=== PATIENT | male | born 1950 | race Caucasian/White ===

== ENCOUNTER → 2021-03-23 07:38 | Outpatient (BNVA) | payer MEDICARE, SELFPAY | PROVIDERS: PCP Family Medicine Adult Medicine; Visit Provider Family Medicine Adult Medicine | DX: E78.5 Hyperlipidemia, unspecified (principal); I25.10 Atherosclerotic heart disease of native coronary artery without angina pectoris; Z13.6 Encounter for screening for cardiovascular disorders; Z95.5 Presence of coronary angioplasty implant and graft | CPT/HCPCS: 80053; 80061; 83036; 84443; 85025; G0103 ==

== ENCOUNTER 2021-06-05 13:57 | Outpatient (CLI) | payer MEDICARE, SELFPAY ==
--- NOTE | 2021-06-05 14:15 | USCV_ITS ---
Myles Medina Age: 71 Gender: M : 1950 Exam Date: 06/05/2021 14:15 Ordering Phys: Vy Camara MD ([email or web address]) Technologist: Ritesh Colon Exam Location: [facility] Indication: Hypertension BP: 119 / 78 HR: 52 Rhythm: Sinus Technical Quality: Adequate MEASUREMENTS (Male / Female) Normal Values 2D ECHO LV Diastolic Diameter PLAX 4.7 cm 4.2 - 5.9 / 3.9 - 5.3 cm LV Systolic Diameter PLAX 3.3 cm LV Chamber Size 4.9 cm IVS Diastolic Thickness 0.8 cm 0.6 - 1.0 / 0.6 - 0.9 cm IVS Systolic Thickness 1.2 cm LVPW Diastolic Thickness 1.3 cm 0.6 - 1.0 / 0.6 - 0.9 cm LVPW Systolic Thickness 1.5 cm RV Chamber Size 2.7 cm LVOT Diameter 2.0 cm LV Ejection Fraction 2D Teich 56.7 % LV Ejection Fraction MOD 2C 53.8 % LV Ejection Fraction 2C AL 53.7 % LA Diameter 2.9 cm LA Width 3.6 cm LA Height 4.1 cm RA Width 3.0 cm RA Height 5.4 cm Aorta at Sinotubular Diameter 3.1 cm M-MODE Aortic Annulus Diameter 2.9 cm LA Ao Ratio MM 1.0 MV E Point Septal Separation 0.9 cm DOPPLER AV Peak Velocity 122.0 cm/s LVOT Peak Velocity 98.0 cm/s AV Area Cont Eq vti 1.9 cm squared AV Area Cont Eq pk 2.4 cm squared MV Area PHT 2.2 cm squared Mitral E to A Ratio 3.2 MV E' Velocity 108.4 cm/s Mitral E to MV E' Ratio 14.1 Mitral E to LV E' Lateral Ratio 13.3 Mitral E to LV E' Septal Ratio 15.3 TR Peak Velocity 92.4 cm/s TR Peak Gradient 3.4 mmHg TR Mean Velocity 62.7 cm/s TR Mean Gradient 1.9 mmHg TR Velocity Time Integral 22.9 cm TV Peak E Velocity 67.0 cm/s Right Atrial Pressure 3.0 mmHg Pulmonary Artery Systolic Pressu 6.4 mmHg PV Peak Velocity 46.0 cm/s RV Acceleration Time 0.1 s RV Ejection Time 0.3 s RV AcT/ET 0.2 FINDINGS Left Ventricle Normal left ventricular size, systolic function and wall thickness, with no regional wall motion abnormalities. Left ventricular ejection fraction is estimated at 60 %. Normal diastolic function. Right Ventricle Normal right ventricular size and systolic function. RVSP could not be calculated due to incomplete tricuspid regurgitation velocity profile. Right Atrium Normal right atrial size. Left Atrium Normal left atrial size. Mitral Valve Structurally normal mitral valve. No mitral valve stenosis. No significant mitral valve regurgitation. Aortic Valve Structurally normal trileaflet aortic valve. No aortic valve stenosis. Trace to mild aortic valve regurgitation. Tricuspid Valve Structurally normal tricuspid valve. No tricuspid valve stenosis. Trace to mild tricuspid valve regurgitation. Pulmonic Valve Pulmonic valve not well visualized. No pulmonary valve stenosis. No significant pulmonary valve regurgitation. Pericardium No pericardial effusion. Aorta Normal size aortic root. CONCLUSIONS 1. This is a technically difficult study. Optison was used per protocol. 2. Normal left ventricular size, systolic function and wall thickness, with no regional wall motion abnormalities. Left ventricular ejection fraction is estimated at 60 %. Normal diastolic function. 3. Trace to mild aortic valve regurgitation. 4. No prior similar studies to compare. Vy Camara MD (Electronically Signed) Final Date: 10 June 2021 08:04 S
[2021-06-05] MEDS: perflutren protein-a microsphr 0.22 mg/mL SDV 3 mL IV (15:06)
== END 2021-06-05 13:58 | disposition home or self-care (01) ==
PROVIDERS: PCP Family Medicine Adult Medicine; Visit Provider Internal Medicine Cardiovascular Disease
DX: I10 Essential (primary) hypertension (principal); I25.10 Atherosclerotic heart disease of native coronary artery without angina pectoris; Z95.5 Presence of coronary angioplasty implant and graft; I35.1 Nonrheumatic aortic (valve) insufficiency
CPT/HCPCS: C8929

== ENCOUNTER → 2021-07-02 14:29 | Outpatient (BNVA) | payer MEDICARE, SELFPAY | PROVIDERS: PCP Family Medicine Adult Medicine; Visit Provider Internal Medicine Cardiovascular Disease | DX: I25.10 Atherosclerotic heart disease of native coronary artery without angina pectoris (principal); I10 Essential (primary) hypertension; Z95.5 Presence of coronary angioplasty implant and graft | CPT/HCPCS: 99214 ==

== ENCOUNTER 2021-09-04 13:28 | Outpatient (CLI) | payer MEDICARE, SELFPAY ==
--- NOTE | 2021-09-04 13:38 | CTR_ITS ---
PROCEDURE INFORMATION: Exam: CT Chest Without Contrast; Diagnostic Exam date and time: 09/04/2021 1:49 PM Age: 71 years old Clinical indication: Condition or disease; Lung condition and disease; Pulmonary nodule, solitary; Prior surgery; Surgery type: Cardiac stents; Patient HX: Copd eval, cough, SOB; Additional info: Follow up/hx of lung nodule since 2006 TECHNIQUE: Imaging protocol: Diagnostic computed tomography of the chest without contrast. Radiation optimization: All CT scans at this facility use at least one of these dose optimization techniques: automated exposure control; mA and/or kV adjustment per patient size (includes targeted exams where dose is matched to clinical indication); or iterative reconstruction. COMPARISON: No relevant prior studies available. RADIATION DOSE METRICS: Total DLP (mGy-cm): 622.91 FINDINGS: Lungs: Moderate centrilobular emphysematous changes. Minor curvilinear scarring at the lung bases. No nodules or masses. Pleural spaces: No pneumothorax. No pleural effusion. Heart: Coronary artery calcifications noted. No cardiomegaly. No pericardial effusion. Lymph nodes: No enlarged lymph nodes. Vasculature: No aortic aneurysm. Bones/joints: No acute fracture. Soft tissues: Unremarkable. CT/CT chest con [id number] IMPRESSION: Moderate emphysema. No nodules or masses.
== END 2021-09-04 13:29 | disposition home or self-care (01) ==
LOC: RAD 13:30
PROVIDERS: PCP Family Medicine Adult Medicine; Visit Provider Family Medicine Adult Medicine
DX: J43.9 Emphysema, unspecified (principal); R91.8 Other nonspecific abnormal finding of lung field
CPT/HCPCS: 71250

== ENCOUNTER 2022-07-30 10:42 | Outpatient (CLI) | payer MEDICARE, SELFPAY ==
--- NOTE | 2022-07-30 12:15 | CT_ITS ---
WS: [id number] LDCT LUNG CANCER SCREENING TECHNIQUE: Noncontrast CT of the chest with coronal and sagittal reformatted images. CLINICAL INFORMATION: smoker COMPARISON: September 04, 2021 DLP: 65.70 mGy.cm DIvol: Mean CTDIvol: 1.00 (mGy) All CT scans at [facility] use at least one of these dose optimization techniques: automat ed exposure control; mA and/or kV adjustment per patient size (includes targeted exams where dose is matched to clinical indication); or iterative reconstruction. FINDINGS: Moderate chronic emphysematous changes. No acute pulmonary infiltrates. No focal pneumonia or pleural fluid. No suspicious pulmonary parenchymal opacities. Normal caliber thoracic aorta. Mild aortic calcification. Coronary calcification. No mediastinal or h ilar lymphadenopathy. No axillary lymphadenopathy. Adrenal glands are normal. CT/CT lung screening [id number] IMPRESSION: LUNG-RADS: 1-Negative FOLLOW UP: 12 Month: Continue annual screening with LDCT
== END 2022-07-30 10:43 | disposition home or self-care (01) ==
LOC: RAD 10:45
PROVIDERS: PCP Family Medicine Adult Medicine; Visit Provider Family Medicine Adult Medicine
DX: Z12.2 Encounter for screening for malignant neoplasm of respiratory organs (principal); J44.9 Chronic obstructive pulmonary disease, unspecified; F17.200 Nicotine dependence, unspecified, uncomplicated; N53.19 Other ejaculatory dysfunction; N40.0 Benign prostatic hyperplasia without lower urinary tract symptoms; I25.10 Atherosclerotic heart disease of native coronary artery without angina pectoris; E78.5 Hyperlipidemia, unspecified; I10 Essential (primary) hypertension
CPT/HCPCS: 71271; 80053; 80061; 85025; G0103

== ENCOUNTER 2023-03-06 03:03 | Emergency (ER) | payer MEDICARE, MEDICAID, SELFPAY ==
[2023-03-06 03:10] VITALS: BP 125/76; PULSE 64; RESP 17; TEMP 36.6; O2SAT 94
--- NOTE | 2023-03-06 03:16 | ECG_ITS ---
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 Measurements Intervals [place] Rate: 64 P: 80 OK: 188 QRS: 71 QRSD: 93 T: 78 QT: 387 QTc: 402 Interpretive Statements SINUS RHYTHM INDETERMINATE AXIS INCOMPLETE RIGHT BUNDLE BRANCH BLOCK [90+ ms QRS DURATION, TERMINAL R IN V1/V2, 40+ ms S IN I/aVL/V4/V5/V6] SEPTAL MYOCARDIAL INFARCTION , OF INDETERMINATE AGE [40+ ms Q WAVE IN V1/V2] No previous ECG available for comparison Electronically Signed On 03-06-2023 22:05:04 INSURANCE INVESTIGATOR by Nick Joyce M.D. [id number]
--- NOTE | 2023-03-06 03:16 | XRR_ITS ---
PROCEDURE INFORMATION: Exam: XR Chest Exam date and time: 03/06/2023 3:38 AM Age: 72 years old Clinical indication: Chest pressure; Prior surgery; Surgery date: 6+ months; Surgery type: Coronary stents; Patient HX: C/O chest pain; Additional info: Cp TECHNIQUE: Imaging protocol: Radiologic exam of the chest. Views: 1 view. COMPARISON: CT lung screening [id number] 07/30/2022 10:59 AM FINDINGS: Lungs: No consolidation. Emphysema. Pleural spaces: No large pleural effusion. No pneumothorax. Heart/Mediastinum: Unremarkable cardiomediastinal silhouette. Coronary artery stents. Bones/joints: No acute abnormality. XR/XR chest 1V portable [id number] IMPRESSION: 1. No acute findings. 2. Emphysema.
[2023-03-06 03:22] LABS: Basophils # 0.1 10^3/uL (0.0-0.1); Basophils % 0.7 %; Eosinophils # 0.2 10^3/uL (0.0-0.8); Hematocrit 47.9 % (37-53); Lymphocytes # 2.4 10^3/uL (0.8-4.8); Lymphocytes % 25.2 %; Mean Corpuscular HGB Conc 33.2 g/dL (30-55); Mean Corpuscular Hemoglobin 33.1 pg (27-33); Mean Corpuscular Volume 99.8 fl (82-101); Mean Platelet Volume 9.4 fL (7.4-10.4); Monocytes # 0.7 10^3/uL (0.2-0.9); Monocytes % 7.8 %; Neutrophils # 6.01 10^3/uL (1.8-7.7); Neutrophils % 63.9 %; Nucleated Red Blood Cells % 0 %; Platelet Count 308 10^3/cmm (157-399); Red Cell Distribution Width 13.5 % (12.1-15.1); White Blood Count 9.41 10^3/uL (3.29-11.43)
[2023-03-06 03:33] LABS: INR 0.95 (0.8-1.2)
[2023-03-06 03:34] LABS: Partial Thromboplastin Time 30.9 SECONDS (23.9-36.7)
[2023-03-06 03:43] LABS: Troponin(5th) Baseline 9 ng/L (0-15)
[2023-03-06 03:45] VITALS: BP 91/49; PULSE 56; RESP 16; O2SAT 96
[2023-03-06 03:59] LABS: Alanine Aminotransferase 24 U/L (0-41); Albumin Level 4.2 g/dL (3.5-5.2); Alkaline Phosphatase 87 U/L (40-130); Anion Gap 11.7 (5-19); Aspartate Amino Transferase 22 U/L (0-40); Blood Urea Nitrogen 15 mg/dL (8-23); Calcium 9.2 mg/dL (8.5-10.5); Carbon Dioxide 26 mmol/L (22-29); Chloride 103 mmol/L (98-107); Glucose 159 mg/dL (65-115); NT Pro B Type Natriuretic Pept 81 pg/mL (0-125); Osmolality Calculated 286 mOsm/kg (285-295); Potassium 4.7 mmol/L (3.5-5.1); Sodium 136 mmol/L (136-145); Total Bilirubin 0.4 mg/dL (0.15-1.2); Total Protein 6.2 g/dL (6.6-8.7)
[2023-03-06 05:01] VITALS: BP 95/58; PULSE 59; RESP 16; O2SAT 97
--- NOTE | 2023-03-06 05:16 | ECG_ITS ---
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 Measurements Intervals [place] Rate: 55 P: 77 UT: 183 QRS: 66 QRSD: 98 T: 71 QT: 415 QTc: 400 Interpretive Statements SINUS BRADYCARDIA INDETERMINATE AXIS SEPTAL MYOCARDIAL INFARCTION , OF INDETERMINATE AGE [40+ ms Q WAVE IN V1/V2] Compared to ECG 03/06/2023 03:06:12 Sinus rhythm no longer present Incomplete right bundle-branch block no longer present Myocardial infarct finding still present Electronically Signed On 03-06-2023 22:19:26 FIBERGLASS BOAT FINISHER by Nick Joyce M.D. [id number]
[2023-03-06 05:37] LABS: Troponin 5 2HR 8.19 ng/L (0-15); Troponin 5 2HR Delta -0.81 ABS# (0-10)
--- NOTE | 2023-03-06 05:58 | ED_ITS ---
HPI - Chest Pain General: Chief Complaint: Chest Pain Stated Complaint: Cp,sweats Time Seen by Provider: 03/06/23 03:53 History of Present Illness: 72-year-old smoker with a history of coronary disease. He presents after waking in his chair this morning with epigastric and chest pain, profuse diaphoresis. Mild shortness of breath. He has a chronic cough that has not changed. No fever. Pain is resolved on my examination. Associated symptoms: Reports abdominal pain (epigastric), dyspnea and palpitations; Deny fever(s), nausea or vomiting Review of Systems Const: Reports: chills; Denies: fever(s) or body aches Eyes: Denies: change in vision ENMT: Denies: throat pain Card: Reports: chest pain and palpitations Resp: Reports: dyspnea and non-productive cough (chronic); Denies: productive cough or wheezing GI: Reports: abdominal pain (epigastric) and heartburn; Denies: nausea, vomiting, diarrhea or hematochezia Musc: Denies: neck pain Skin/Breast: Denies: rash Neuro: Denies: headache(s), weakness in extremities, dizziness or confusion PFSH ED PFSH: Medical History Bilateral leg cramps BPH (benign prostatic hyperplasia) CAD (coronary artery disease) ID x2, Stents 2006, Stents 04/2014 x3 total of 5 COPD (chronic obstructive pulmonary disease) HTN (hypertension) Hx of rheumatic fever As baby but was told no heart valve issues from it Hyperlipidemia Multiple lung nodules CT Scan 08/20/2020 Rt apex 5 mm irregular opacity, repeat non-contact CT after 6 months PAD (peripheral artery disease) PUD (peptic ulcer disease) Ulcer at age 19 Smoker 1 ppd since age 14 Surgical History History of heart artery stent Stents 2006, Stents 04/2014 x3 Hx of tonsillectomy At age 22 Family History Brother , Brother with Lung CA age 68 No problems noted. Other CAD (coronary artery disease) CHF (congestive heart failure) HOCM (hypertrophic obstructive cardiomyopathy) Stroke Social History Smoking and tobacco/nicotine status: current every day tobacco/nicotine user Alcohol intake: current Alcohol intake frequency: 0-2 Drinks per Day Substance/Drug Use: never Lives independently: Yes Household members: significant other Current occupational status: retired Physical Exam Const: COMMON NORMALS: no acute distress GENERAL APPEARANCE: cooperative; not ill appearing and not frail appearing HENMT: COMMON NORMALS: normocephalic, atraumatic and Normal external nose present HEAD & SCALP: normocephalic and atraumatic FACE & SINUS: normal facial exam and face symmetric NOSE: Normal external nose present Eye: COMMON NORMALS: Equal, round and reactive pupils present and EOMs intact bilaterally PUPIL: Yes Equal, round and reactive pupils present Neck/C-Spine: GENERAL: Yes trachea midline Chest: CHEST: Yes Symmetrical chest wall rise Resp: COMMON NORMALS: normal respiratory effort, No retractions, No use of accessory muscles and clear to auscultation bilaterally AUSCULTATION: clear to auscultation bilaterally Cardio: COMMON NORMALS: regular rate and regular rhythm RATE: regular rate RHYTHM: regular rhythm GI: COMMON NORMALS: Normal to inspection, nondistended, normoactive bowel sounds present Extremity: COMMON NORMALS: no pedal edema Neuro: RICHARD COMA SCALE: document GCS findings [address] coma scale eye opening: Spontaneous Richard coma scale verbal response: Orientated Richard coma scale motor response: Obey commands Richard coma scale total score: 15 SENSORY EXAM: Yes extremities (intact) Psych: COMMON NORMALS: speech normal SPEECH: Yes normal speech Skin: COMMON NORMALS: no rashes or lesions noted GENERAL SKIN EXAM: no rashes or lesions noted Course Vital Signs: Vital signs: Vital Signs Temperature 97.9 F 03/06/23 06:18 Pulse Rate 59 L 03/06/23 06:18 Respiratory Rate 16 03/06/23 06:18 Blood Pressure 95/58 03/06/23 06:18 Pulse Oximetry 97 03/06/23 06:18 Oxygen Delivery Me thod Room Air 03/06/23 03:10 MDM - Chest Pain Medical Decision Making Vitals are stable. Pain is resolved. CBC is normal. BMP is not remarkable. Chest x-ray shows emphysematous findings without acute change. First troponin was 9, with a delta of 0.8. BNP is 81. EKG shows a NSR, normal axis and intervals, no acute ST wave changes. With resolution of symptoms and no change in EKG, normal troponins, will allow home. Return for return of pain or other symptoms. Close outpt fu. Lab Data 03/06/23 03:10 03/06/23 03:10 Radiology Impressions Chest X-Ray 03/06/23 03:16 IMPRESSION: 1. No acute findings. 2. Emphysema. Laboratory Results WBC 9.41 10^3/uL (3.29-11.43) 03/06/23 03:10 RBC 4.80 10^6/uL (3.85-5.65) 03/06/23 03:10 Hgb 15.90 g/dL (11.27-16.99) 03/06/23 03:10 Hct 47.9 % (37-53) 03/06/23 03:10 MCV 99.8 fl (82-101) 03/06/23 03:10 MCH 33.1 pg (27-33) H 03/06/23 03:10 MCHC 33.2 g/dL (30-55) 03/06/23 03:10 RDW 13.5 % (12.1-15.1) 03/06/23 03:10 Plt Count 308 10^3/cmm (157-399) 03/06/23 03:10 MPV 9.4 fL (7.4-10.4) 03/06/23 03:10 Neut % (Auto) 63.9 % 03/06/23 03:10 Lymph % (Auto) 25.2 % 03/06/23 03:10 [place] % (Auto) 7.8 % 03/06/23 03:10 Eos % (Auto) 2.0 % 03/06/23 03:10 Baso % (Auto) 0.7 % 03/06/23 03:10 Neut # (Auto) 6.01 10^3/uL (1.8-7.7) 03/06/23 03:10 Lymph # (Auto) 2.4 10^3/uL (0.8-4.8) 03/06/23 03:10 [place] # (Auto) 0.7 10^3/uL (0.2-0.9) 03/06/23 03:10 Eos # (Auto) 0.2 10^3/uL (0.0-0.8) 03/06/23 03:10 Baso # (Auto) 0.1 10^3/uL (0.0-0.1) 03/06/23 03:10 Nucleated RBC % (auto) 0 % 03/06/23 03:10 Nucleated RBCs # 0.0 /100WBC 03/06/23 03:10 PT 13.00 SECONDS (12.1-14.9) 03/06/23 03:10 INR 0.95 (0.8-1.2) 03/06/23 03:10 APTT 30.9 SECONDS (23.9-36.7) 03/06/23 03:10 Sodium 136 mmol/L (136-145) 03/06/23 03:10 Potassium 4.7 mmol/L (3.5-5.1) 03/06/23 03:10 Chloride 103 mmol/L (98-107) 03/06/23 03:10 Carbon Dioxide 26 mmol/L (22-29) 03/06/23 03:10 Anion Gap 11.7 (5-19) 03/06/23 03:10 BUN 15 mg/dL (8-23) 03/06/23 03:10 Creatinine 1.0 mg/dL (0.7-1.2) 03/06/23 03:10 GFR Calculation Not Reportable 03/06/23 03:10 Glucose 159 mg/dL (65-115) H 03/06/23 03:10 Calculated Osmolality 286 mOsm/kg (285-295) 03/06/23 03:10 Calcium 9.2 mg/dL (8.5-10.5) 03/06/23 03:10 Total Bilirubin 0.4 mg/dL (0.15-1.2) 03/06/23 03:10 AST 22 U/L (0-40) 03/06/23 03:10 ALT 24 U/L (0-41) 03/06/23 03:10 Alkaline Phosphatase 87 U/L (40-130) 03/06/23 03:10 Troponin T Baseline 9 ng/L (0-15) 03/06/23 03:10 Troponin T 120 Minute 8.19 ng/L (0-15) 03/06/23 04:57 Delta Troponin T -0.81 ABS# (0-10) L 03/06/23 04:57 NT-Pro-B Natriuret Pep 81 pg/mL (0-125) 03/06/23 03:10 Total Protein 6.2 g/dL (6.6-8.7) L 03/06/23 03:10 Albumin 4.2 g/dL (3.5-5.2) 03/06/23 03:10 Globulin 2.0 g/dL (1.3-4.6) 03/06/23 03:10 All radiology interpretation(s) finalized by discharge Discharge Plan Discharge Patient Disposition: Home Clinical Impression: Chest pain Condition: Stable Prescriptions: No Action magnesium 250 mg tablet 250 mg PO DAILY atorvastatin 80 mg tablet 80 mg PO DAILY Qty: 90 3RF ropinirole 0.5 mg tablet 0.5 mg PO BID Qty: 60 5RF sildenafil 100 mg tablet See Rx Instructions .ROUTE .COMPLEX Qty: 14 3RF Dose Instruction: TAKE 1 TABLET BY MOUTH NEEDED 30 MINUTES TO 4 HOURS BEFORE SEXUAL ACTIVITY Rx Instructions: TAKE 1 TABLET BY MOUTH NEEDED 30 MINUTES TO 4 HOURS BEFORE SEXUAL ACTIVITY metoprolol tartrate 25 mg tablet 25 mg PO BID Qty: 180 1RF nitroglycerin 0.4 mg tablet, sublingual 0.4 mg sublingual Q5M PRN (Reason: angina) Qty: 10 3RF Rx Instructions: do not exceed 3 doses per episode guaifenesin 600 mg tablet extended release 12hr 600 mg PO Q12H PRN (Reason: congestion) Qty: 60 5RF albuterol sulfate 90 mcg/actuation HFA aerosol inhaler 2 puff inhalation Q6H PRN (Reason: shortness of breath or wheezing) Qty: 8.5 5RF tiotropium bromide [Spiriva with HandiHaler] 18 mcg capsule, w/inhalation device 1 cap inhalation DAILY Qty: 30 3RF Rx Instructions: puncture 1 cap using device; one dose = 2 inhalations clopidogrel 75 mg tablet 75 mg PO DAILY Qty: 100 1RF furosemide 20 mg tablet 20 mg PO DAILY PRN (Reason: edema) Qty: 100 1RF lisinopril 5 mg tablet 5 mg PO DAILY Qty: 100 1RF Discharge Orders: Discharge ED (Routine); Ordered 03/06/23 Ordered By: Terence Pabon Referrals: Oneil Montalvo MD [Primary Care Provider] - 1-3 days Discharge Diet: Advance as tolerated Patient Instructions: Chest Wall Pain (ED), Opioid Safety, Pain Management Activity Restrictions/Additional Instructions: Return for any return of your chest discomfort, worsening shortness of breath, fever, other concerning symptoms. Call your doctor on Tuesday. Let them know you were seen here with chest discomfort. They may wish to perform more outpatient testing. Coding Level of Care Code ED Instrument Technician Apprentice for 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
[2023-03-06 06:18] VITALS: BP 95/58; PULSE 59; RESP 16; TEMP 36.6; O2SAT 97
== END 2023-03-06 06:19 | disposition home or self-care (01) ==
PROVIDERS: Emergency Provider Emergency Medicine; PCP Family Medicine Adult Medicine
DX: R07.9 Chest pain, unspecified (principal); J43.9 Emphysema, unspecified; Z79.02 Long term (current) use of antithrombotics/antiplatelets; Z72.0 Tobacco use; I25.10 Atherosclerotic heart disease of native coronary artery without angina pectoris; I10 Essential (primary) hypertension; E78.5 Hyperlipidemia, unspecified
CPT/HCPCS: 71045; 80053; 83880; 84484; 85025; 85610; 85730; 93005; 99285

== ENCOUNTER 2024-03-02 09:36 | Outpatient (CLI) | payer MEDICARE, MEDICAID, SELFPAY ==
--- NOTE | 2024-03-02 09:45 | USCV_ITS ---
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 Normal resting KRYS and TBI on the right side suggesting no significant arterial obstruction. 2. Normal resting KRYS with a slightly diminished resting TBI of the left side suggesting mild peripheral artery disease involving the distal vessels Dr Nick Joyce MD [facility] (Electronically Signed) Final Date: 02 March 2024 15:23 S
== END 2024-03-02 09:37 | disposition home or self-care (01) ==
LOC: RAD 09:36
PROVIDERS: PCP Family Medicine Adult Medicine; Visit Provider Family Medicine
DX: I73.9 Peripheral vascular disease, unspecified (principal)
CPT/HCPCS: 93922

== ENCOUNTER → 2024-07-31 08:36 | Outpatient (BNVA) | payer MEDICARE, SELFPAY | PROVIDERS: PCP Family Medicine; Visit Provider Family Medicine | DX: I10 Essential (primary) hypertension (principal); Z12.5 Encounter for screening for malignant neoplasm of prostate | CPT/HCPCS: 80053; 80061; 81000; 82043; 85025; G0103 ==

== ENCOUNTER → 2024-08-03 09:47 | Outpatient (BNVA) | payer MEDICARE, SELFPAY | PROVIDERS: PCP Family Medicine; Visit Provider Family Medicine | DX: R31.29 Other microscopic hematuria (principal) | CPT/HCPCS: 81003 ==

== ENCOUNTER 2024-08-06 22:51 | Emergency (ER) | payer MEDICARE, SELFPAY ==
[2024-08-06 22:55] VITALS: BP 172/98; PULSE 74; RESP 18; TEMP 36.8; O2SAT 91
--- NOTE | 2024-08-06 23:02 | CTR_ITS ---
PROCEDURE INFORMATION: Exam: CT Abdomen And Pelvis With Contrast Exam date and time: 08/06/2024 11:42 PM Age: 74 years old Clinical indication: Abdominal pain; Localized; Lower; Additional info: Abd pain TECHNIQUE: Imaging protocol: Computed tomography of the abdomen and pelvis with contrast. Radiation optimization: All CT scans at this facility use at least one of these dose optimization techniques: automated exposure control; mA and/or kV adjustment per patient size (includes targeted exams where dose is matched to clinical indication); or iterative reconstruction. Contrast material: OMNI 350; Contrast volume: 100 ml; Contrast route: INTRAVENOUS (IV); COMPARISON: CT lung screening [id number] 07/30/2022 10:59 AM RADIATION DOSE METRICS: Total DLP (mGy-cm): 437.62 FINDINGS: Lungs: Mild lower lung scarring/atelectasis. Liver: Normal. No mass. Gallbladder and biliary ducts: Normal. No calcified stones. No ductal dilation. Pancreas: Normal. No ductal dilation. Spleen: Normal. No splenomegaly. Adrenal glands: Normal. No mass. Kidneys and ureters: Multiple bilateral renal subcentimeter cortical hypodensities, likely cysts but too small to characterize. Renal enhancement otherwise symmetrical. No hydronephrosis or urolithiasis. Stomach and bowel: Mild wall thickening versus nondistention of the descending colon, sigmoid colon, and rectum. Small and large bowel otherwise unremarkable. Nonobstructive bowel gas pattern. Appendix: No evidence of appendicitis. Intraperitoneal space: Unremarkable. No free air. No significant fluid collection. Vasculature: Severe atherosclerotic calcification of the aorta and major branch vessels without aneurysm. Lymph nodes: Unremarkable. No enlarged lymph nodes. Urinary bladder: Unremarkable as visualized. Reproductive: Mild prostatomegaly measuring 5.5 cm transversely. Bones/joints: Moderate thoracolumbar spondylosis. No acute osseous abnormality. Soft tissues: Unremarkable. CT/CT abdomen pelvis w con* [id number] IMPRESSION: 1. Mild wall thickening versus nondistention of the descending colon, sigmoid colon, and rectum. Possible mild infectious/inflammatory proctocolitis. Nonobstructive bowel gas pattern. 2. Mild prostatomegaly. COMMENTS: Consistent with the [place] [employer]'s Incidental Findings Committee white paper (J Am Raimundo Radiol 2018): Any incidental renal lesion less than 1 cm or classified as too small to characterize, or any incidental cystic renal lesion characterized as simple-appearing, is likely benign. No follow-up imaging is recommended for these lesions per consensus recommendations based on imaging criteria.
--- NOTE | 2024-08-06 23:16 | W.ED.GIBLEED ---
HPI - GI Bleed General: Chief complaint: GI Bleed Stated complaint: Rectal Bleeding Time Seen by Provider: 08/06/24 23:01 Source: patient Mode of arrival: ambulatory Limitations: no limitations History of Present Illness: 74-year-old male states been having abdominal cramping this evening has been having diarrhea states his last episode of diarrhea had some bright red blood in his stool. He denies any severe pain denies any lightheadedness denies any worse or improving factors. Associated symptoms: Reports abdominal pain; Denies chills, fever(s), headache(s), nausea, rash or vomiting Related Data Home Medications ?Medication ?Instructions ?Recorded ?Confirmed turmeric root extract 500 mg 500 mg PO DAILY 07/30/24 07/30/24 capsule Previous Rx's ?Medication ?Instructions ?Recorded albuterol sulfate 90 mcg/actuation 2 puff inhalation Q6H PRN 02/03/23 aerosol inhaler shortness of breath or wheezing #8.5 grams atorvastatin 80 mg tablet 80 mg PO DAILY cholesterol #90 tabs 09/14/23 clopidogrel 75 mg tablet 75 mg PO DAILY #90 tabs 07/30/24 fluticasone fur. 100 mcg-umeclid 1 inh inhalation DAILY #60 ea 07/30/24 62.5 mcg-vilant 25 mcg inhalat.powder (Trelegy Ellipta) lisinopril 5 mg tablet 5 mg PO DAILY #90 tabs 07/30/24 metoprolol tartrate 25 mg tablet 25 mg PO BID heart & blood 07/30/24 pressure #180 tabs omeprazole 40 mg capsule,delayed 40 mg PO DAILY #30 caps 07/30/24 release tamsulosin 0.4 mg capsule (Flomax) 0.4 mg PO DAILY #90 caps 08/02/24 ciprofloxacin HCl 500 mg tablet 500 mg PO BID #14 tabs 08/07/24 (Cipro) metronidazole 500 mg tablet 500 mg PO Q8H 7 days #21 tabs 08/07/24 Allergies Allergy/AdvReac Type Severity Reaction Status Date / Time No Known Allergies Allergy Verified 08/06/24 23:00 Review of Systems Const: Denies: fever(s), chills, body aches or change in appetite ENMT: Denies: throat pain or dental pain Card: Denies: chest pain Resp: Denies: dyspnea GI: Reports: abdominal pain, diarrhea and hematochezia; Denies: nausea or vomiting Musc: Denies: neck pain or back pain Skin/Breast: Denies: rash Neuro: Denies: headache(s) PFSH ED PFSH: Medical History Cellulitis of arm, left Bilateral leg cramps BPH (benign prostatic hyperplasia) PUD (peptic ulcer disease) Ulcer at age 19 COPD (chronic obstructive pulmonary disease) PAD (peripheral artery disease) CAD (coronary artery disease) RI x2, Stents 2006, Stents 04/2014 x3 total of 5 Smoker 1 ppd since age [address] lung nodules CT Scan 08/20/2020 Rt apex 5 mm irregular opacity, repeat non-contact CT after 6 months HTN (hypertension) Hyperlipidemia Hx of rheumatic fever As baby but was told no heart valve issues from it Surgical History History of heart artery stent Stents 2006, Stents 04/2014 x3 Hx of tonsillectomy At age 22 Family History Brother , Brother with Lung CA age 68 No problems noted. Other CAD (coronary artery disease) Congestive heart failure (CHF) HOCM (hypertrophic obstructive cardiomyopathy) Stroke Social History Smoking and tobacco/nicotine status: current every day tobacco/nicotine user Alcohol intake: current Alcohol intake frequency: 0-2 Drinks per Day Substance/Drug Use: never Lives independently: Yes Household members: significant other Current occupational status: retired Physical Exam Const: COMMON NORMALS: no acute distress, patient oriented x3 and healthy appearing HENMT: COMMON NORMALS: normocephalic and atraumatic HEAD & SCALP: normocephalic and atraumatic Eye: COMMON NORMALS: conjunctivae normal CONJUNCTIVA: Yes conjunctivae normal Neck/C-Spine: COMMON NORMALS: full ROM and supple Chest: COMMONS NORMALS: normal inspection of the chest Resp: COMMON NORMALS: normal respiratory effort Cardio: COMMON NORMALS: regular rate, regular rhythm and No murmurs present (Cardio) RATE: regular rate RHYTHM: regular rhythm GI: COMMON NORMALS: Normal to inspection, nondistended, normoactive bowel sounds present, Soft to palpation, non-tender and no masses PALPATION: Yes Soft to palpation RECTAL EXAM: Yes visual inspection normal and Yes normal sphincter tone OTHER: stool is brown no blood noted Extremity: COMMON NORMALS: normal to inspection and full ROM Neuro: COMMON NORMALS: patient oriented x3, moves all extremities and no focal motor deficits Psych: COMMON NORMALS: mental status grossly normal, Normal thought process present and cooperative THOUGHT PROCESS: Normal thought process present Skin: COMMON NORMALS: no rashes or lesions noted and no wounds GENERAL SKIN EXAM: no rashes or lesions noted Course Vital Signs: Vital signs: Vital Signs Temperature 98.2 F 08/06/24 22:55 Pulse Rate 89 08/07/24 00:30 Respiratory Rate 18 08/06/24 22:55 Blood Pressure 136/86 08/07/24 00:30 Pulse Oximetry 93 08/07/24 00:30 Oxygen Delivery Me thod Room Air 08/06/24 23:35 MDM - GI Bleed Medical Decision Making Patient presents here with some abdominal cramping diarrhea slight blood in the stools his blood work here is normal hemoglobin is normal rectal exam showed no blood here he does have a colitis on CT scan will be started on Cipro Flagyl he is follow-up with PCP and return if worsening. Medical Records I reviewed the patient's medical records. Lab Data I reviewed the patient's lab results. 08/06/24 23:15 08/06/24 23:15 Radiology Impressions Abdomen/Pelvis CT 08/06/24 23:02 IMPRESSION: 1. Mild wall thickening versus nondistention of the descending colon, sigmoid colon, and rectum. Possible mild infectious/inflammatory proctocolitis. Nonobstructive bowel gas pattern. 2. Mild prostatomegaly. COMMENTS: Consistent with the [place] [employer]'s Incidental Findings Committee white paper (J Am Raimundo Radiol 2018): Any incidental renal lesion less than 1 cm or classified as too small to characterize, or any incidental cystic renal lesion characterized as simple-appearing, is likely benign. No follow-up imaging is recommended for these lesions per consensus recommendations based on imaging criteria. Laboratory Results WBC 10.69 10^3/uL (3.29-11.43) 08/06/24 23:15 RBC 4.69 10^6/uL (3.85-5.65) 08/06/24 23:15 Hgb 15.40 g/dL (11.27-16.99) 08/06/24 23:15 Hct 45.7 % (37-53) 08/06/24 23:15 MCV 97.4 fl (82-101) 08/06/24 23:15 MCH 32.8 pg (27-33) 08/06/24 23:15 MCHC 33.7 g/dL (30-55) 08/06/24 23:15 RDW 13.8 % (12.1-15.1) 08/06/24 23:15 Plt Count 267 10^3/cmm (157-399) 08/06/24 23:15 MPV 9.8 fL (7.4-10.4) 08/06/24 23:15 Neut % (Auto) 72.6 % 08/06/24 23:15 Lymph % (Auto) 16.7 % 08/06/24 23:15 [place] % (Auto) 9.0 % 08/06/24 23:15 Eos % (Auto) 0.7 % 08/06/24 23:15 Baso % (Auto) 0.6 % 08/06/24 23:15 Neut # (Auto) 7.77 10^3/uL (1.8-7.7) H 08/06/24 23:15 Lymph # (Auto) 1.8 10^3/uL (0.8-4.8) 08/06/24 23:15 [place] # (Auto) 1.0 10^3/uL (0.2-0.9) H 08/06/24 23:15 Eos # (Auto) 0.1 10^3/uL (0.0-0.8) 08/06/24 23:15 Baso # (Auto) 0.1 10^3/uL (0.0-0.1) 08/06/24 23:15 Nucleated RBC % (auto) 0 % 08/06/24 23:15 Nucleated RBCs # 0.0 /100WBC 08/06/24 23:15 Sodium 140 mmol/L (136-145) 08/06/24 23:15 Potassium 3.7 mmol/L (3.5-5.1) 08/06/24 23:15 Chloride 105 mmol/L (98-107) 08/06/24 23:15 Carbon Dioxide 22 mmol/L (22-29) 08/06/24 23:15 Anion Gap 16.7 (5-19) 08/06/24 23:15 BUN 17 mg/dL (8-23) 08/06/24 23:15 Creatinine 0.7 mg/dL (0.7-1.2) 08/06/24 23:15 GFR Calculation Not Reportable 08/06/24 23:15 Glucose 97 mg/dL (65-115) 08/06/24 23:15 Calculated Osmolality 291 mOsm/kg (285-295) 08/06/24 23:15 Calcium 8.7 mg/dL (8.5-10.5) 08/06/24 23:15 Total Bilirubin 0.4 mg/dL (0.15-1.2) 08/06/24 23:15 AST 31 U/L (0-40) 08/06/24 23:15 ALT 32 U/L (0-41) 08/06/24 23:15 Alkaline Phosphatase 87 U/L (40-130) 08/06/24 23:15 Total Protein 6.8 g/dL (6.6-8.7) 08/06/24 23:15 Albumin 4.1 g/dL (3.5-5.2) 08/06/24 23:15 Globulin 2.7 g/dL (1.3-4.6) 08/06/24 23:15 Lipase 43 U/L (13-60) 08/06/24 23:15 All radiology interpretation(s) finalized by discharge Discharge Plan Discharge Patient Disposition: Home Clinical Impression: Colitis Condition: Stable Prescriptions: New metronidazole 500 mg tablet 500 mg PO Q8H 7 Days Qty: 21 0RF ciprofloxacin HCl [Cipro] 500 mg tablet 500 mg PO BID Qty: 14 0RF No Action turmeric root extract 500 mg capsule 500 mg PO DAILY Trelegy Ellipta 100-62.5-25 mcg blister with device 1 inh inhalation DAILY Qty: 60 1RF omeprazole 40 mg capsule,delayed release(DR/EC) 40 mg PO DAILY Qty: 30 1RF clopidogrel 75 mg tablet 75 mg PO DAILY Qty: 90 1RF lisinopril 5 mg tablet 5 mg PO DAILY Qty: 90 1RF metoprolol tartrate 25 mg tablet 25 mg PO BID Qty: 180 1RF albuterol sulfate 90 mcg/actuation HFA aerosol inhaler 2 puff inhalation Q6H PRN (Reason: shortness of breath or wheezing) Qty: 8.5 5RF atorvastatin 80 mg tablet 80 mg PO DAILY Qty: 90 3RF tamsulosin [Flomax] 0.4 mg capsule 0.4 mg PO DAILY Qty: 90 0RF Discharge Orders: Discharge ED (Routine); Ordered 08/07/24 Ordered By: Mike Montalvo Referrals: Renetta Keating DO [Primary Care Provider] - 4-7 days Discharge Diet: Advance as tolerated Discharge Activity: Resume usual activity Patient Instructions: Colitis (ED) Print Language: Italian Coding Level of Care Code ED 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
[2024-08-06 23:31] LABS: Basophils # 0.1 10^3/uL (0.0-0.1); Basophils % 0.6 %; Eosinophils # 0.1 10^3/uL (0.0-0.8); Eosinophils % 0.7 %; Hematocrit 45.7 % (37-53); Lymphocytes # 1.8 10^3/uL (0.8-4.8); Lymphocytes % 16.7 %; Mean Corpuscular HGB Conc 33.7 g/dL (30-55); Mean Corpuscular Hemoglobin 32.8 pg (27-33); Mean Corpuscular Volume 97.4 fl (82-101); Mean Platelet Volume 9.8 fL (7.4-10.4); Neutrophils # 7.77 10^3/uL (1.8-7.7); Neutrophils % 72.6 %; Nucleated Red Blood Cells % 0 %; Platelet Count 267 10^3/cmm (157-399); Red Blood Count 4.69 10^6/uL (3.85-5.65); Red Cell Distribution Width 13.8 % (12.1-15.1); White Blood Count 10.69 10^3/uL (3.29-11.43)
[2024-08-06 23:35] VITALS: PULSE 78; O2SAT 94
[2024-08-06] MEDS: iohexol 350 mg/mL 500 mL Btl (per mL) IV (23:45)
[2024-08-06 23:48] LABS: Alanine Aminotransferase 32 U/L (0-41); Albumin Level 4.1 g/dL (3.5-5.2); Alkaline Phosphatase 87 U/L (40-130); Anion Gap 16.7 (5-19); Aspartate Amino Transferase 31 U/L (0-40); Blood Urea Nitrogen 17 mg/dL (8-23); Calcium 8.7 mg/dL (8.5-10.5); Carbon Dioxide 22 mmol/L (22-29); Chloride 105 mmol/L (98-107); Creatinine Clr Calc Pharmacy 83.2382; Globulin 2.7 g/dL (1.3-4.6); Glucose 97 mg/dL (65-115); Lipase 43 U/L (13-60); Osmolality Calculated 291 mOsm/kg (285-295); Potassium 3.7 mmol/L (3.5-5.1); Sodium 140 mmol/L (136-145); Total Bilirubin 0.4 mg/dL (0.15-1.2); Total Protein 6.8 g/dL (6.6-8.7)
[2024-08-07 00:13] VITALS: BP 156/70; PULSE 90; O2SAT 96
[2024-08-07 00:30] VITALS: BP 136/86; PULSE 89; O2SAT 93
[2024-08-07 00:43] VITALS: BP 136/86; PULSE 90; O2SAT 95
== END 2024-08-07 00:44 | disposition home or self-care (01) ==
PROVIDERS: Emergency Provider Emergency Medicine; PCP Family Medicine
DX: K52.9 Noninfective gastroenteritis and colitis, unspecified (principal); Z79.02 Long term (current) use of antithrombotics/antiplatelets; Z72.0 Tobacco use; E78.5 Hyperlipidemia, unspecified; I25.10 Atherosclerotic heart disease of native coronary artery without angina pectoris; I10 Essential (primary) hypertension; J44.9 Chronic obstructive pulmonary disease, unspecified
CPT/HCPCS: 74177; 80053; 83690; 85025; 99285

== ENCOUNTER → 2024-09-11 08:55 | Outpatient (BNVA) | payer MEDICARE, SELFPAY | PROVIDERS: PCP Family Medicine; Visit Provider Family Medicine | DX: R31.29 Other microscopic hematuria (principal) | CPT/HCPCS: 81003 ==

== ENCOUNTER 2024-09-18 09:44 | Outpatient (CLI) | payer MEDICARE, SELFPAY ==
--- NOTE | 2024-09-18 10:00 | CT_ITS ---
WS: [id number] LDCT LUNG CANCER SCREENING TECHNIQUE: Noncontrast CT of the chest with coronal and sagittal reformatted images. CLINICAL INFORMATION: screening COMPARISON: 2022 DLP: 61.97 mGy.cm DIvol: Mean CTDIvol: 1.00 (mGy) All CT scans at [facility] use at least one of these dose optimization techniques: automated exposure control; mA and/or kV adjustment per patient size (includes targeted exams where dose is matched to clinical indication); or iterative reconstruction. FINDINGS: Chronic emphysematous changes. No acute pulmonary infiltrate. No new suspicious pulmonary parenchymal opacities. 3 mm noncalcified nodule at the lung apex. Fibrosis in the lung apices. Normal caliber thoracic aorta. Mild aortic calcification. Coronary calcification. No mediastinal or hilar lymphadenopathy. No axillary lymphadenopathy. Mild thoracic kyphosis. Anterior hypertrophic changes thoracic spine. Mild chronic appearing anterior wedging in the upper thoracic spine. Adrenal glands are normal CT/CT lung screening [id number] IMPRESSION: LUNG-RADS: 2-Benign Appearance or Behavior FOLLOW UP: 12 Month: Continue annual screening with LDCT
== END 2024-09-18 09:45 | disposition home or self-care (01) ==
PROVIDERS: PCP Family Medicine; Visit Provider Family Medicine
DX: Z12.2 Encounter for screening for malignant neoplasm of respiratory organs (principal); F17.219 Nicotine dependence, cigarettes, with unspecified nicotine-induced disorders; J43.8 Other emphysema; R91.1 Solitary pulmonary nodule; J84.10 Pulmonary fibrosis, unspecified; I70.0 Atherosclerosis of aorta; I25.10 Atherosclerotic heart disease of native coronary artery without angina pectoris; M40.294 Other kyphosis, thoracic region; M89.38 Hypertrophy of bone, other site; M48.54XD Collapsed vertebra, not elsewhere classified, thoracic region, subsequent encounter for fracture with routine healing
CPT/HCPCS: 71271

== ENCOUNTER 2024-10-29 13:48 | Outpatient (CLI) | payer MEDICARE, SELFPAY ==
--- NOTE | 2024-10-29 14:00 | US_ITS ---
WS: [id number] SCROTAL ULTRASOUND REASON FOR EXAM: left scrotal / inguinal pain COMPARISON: None available. TECHNIQUE: Grayscale and duplex color Doppler ultrasound examination of the scrotum. FINDINGS: RIGHT HEMISCROTUM: Moderate hydrocele. Right testes measures 3.9 cm x 2.1 cm x 3.0 cm. Homogeneous echogenicity. No focal lesion. Normal blood flow. Prominent of the epididymis with prominence of the efferent ductules. This changes are most likely post vasectomy. No focal lesion. LEFT HEMISCROTUM: Moderate hydrocele Left testes measures 3.8 cm x 2.4 cm x 2.5 cm. Homogeneous echogenicity. No focal lesion. Normal blood flow. Prominence of the efferent ductules. Most likely proximal vasectomy. Complex predominantly echogenic mass that is extratesticular. Possibly this is a mass from the spermatic cord which is the most common extratesticular tumor location. The echogenicity would suggest a lipoma. Another possibility is that it is an epididymal mass which is very uncommon. These are often adenomatoid masses. Both of these are benign. US/US scrotum [id number] IMPRESSION: Bilateral hydroceles. Presumed post vasectomy changes in the right epididymis. Presumed benign extratesticular mass as above.
== END 2024-10-29 13:49 | disposition home or self-care (01) ==
PROVIDERS: PCP Family Medicine; Visit Provider Family Medicine
DX: N43.3 Hydrocele, unspecified (principal); N50.812 Left testicular pain
CPT/HCPCS: 76870

== ENCOUNTER → 2024-11-20 11:34 | Outpatient (BNVA) | payer MEDICARE, SELFPAY | PROVIDERS: PCP Family Medicine; Visit Provider Internal Medicine Cardiovascular Disease | DX: I25.10 Atherosclerotic heart disease of native coronary artery without angina pectoris (principal); E78.2 Mixed hyperlipidemia; I10 Essential (primary) hypertension; Z95.5 Presence of coronary angioplasty implant and graft; F17.219 Nicotine dependence, cigarettes, with unspecified nicotine-induced disorders; I25.2 Old myocardial infarction; R07.9 Chest pain, unspecified; R06.02 Shortness of breath; R25.2 Cramp and spasm | CPT/HCPCS: 36415; 80048; 83735; 93005; 99205 ==

== ENCOUNTER 2024-12-10 09:22 | Outpatient (CLI) | payer MEDICARE, SELFPAY ==
[2024-12-10 10:02] VITALS: BMI 22.2
--- NOTE | 2024-12-10 10:05 | ECG_ITS ---
[facility] Date: 2024-12-10 Pat Name: Myles Medina Department: Room: Gender: Male Line Closer: : 1950 Requested By: Nick Joyce Order Number: [id number] Mahmood MD: Eriberto Walker M.D. Interpretive Statements EXERCISE DATA: The patient was exercised by Joshua protocol. at rest, patient's blood pressure was 119/71 with a heart rate of 87 bpm. Resting EKG showed normal sinus rhythm with no ST-T wave abnormality. The patient exercised for 4 minutes and 6 seconds achieving 4.6 METS of exercise and a maximum heart rate of 147 which was 100% of the patient's maximal predicted heart rate. Blood pressure at peak exercise was 223/188. There were no ST-T wave abnormalities or arrhythmias with exercise. In recovery the patient's blood pressure was 147/108 with a heart rate of 84 bpm. CONCLUSION: 1. Exercise capacity below average for patient's age. 2. No EKG or symptoms consistent with inducible ischemia. 3. Hypertensive blood pressure response to exercise. Electronically Signed On 12-11-2024 23:23:49 CDT by Eriberto Walker M.D. [email or web address]
--- NOTE | 2024-12-10 10:06 | NMCV_ITS ---
NM demario perf SPECT r/s* [id number] Myles Medina Age: 74 Gender: M : 1950 Exam Date: 12/10/2024 10:43 Ordering Phys: Nick Joyce MD ([email or web address]) Technologist: MARYJO Bazan Exam Location: [facility] Indications: cp STRESS TEST Please see separate stress test report in [facility] for full findings IMAGE PROTOCOL Rest/Stress 1 Exercise Day Radiopharmaceutical Dose (mCi) Administration Site Administered by Rest: Tc-99m 10.4 IV MARYJO Bazan Stress:Tc-99m 32.9 IV MARYJO Bazan Rest: 10-Dec-2024 60 Discovery 630 Stress: 10-Dec-2024 15 Discovery 630 Radiopharmaceutical was injected at 90% maximum heart rate. Images obtained in supine and prone position. SPECT RESULTS Technical Quality: Good Raw Data Analysis: Normal Image Corrections: No attenuation or motion correction applied Summed Stress Score: 2 Summed Rest Score: 7 Summed Difference Score: 0 PERFUSION FINDINGS Reduced radiotracer uptake is seen on resting imaging in inferior wall that resolves on prone stress imaging. This is consistent with attenuation artifact. No evidence of ischemia. FUNCTIONAL RESULTS (calculated via Gated SPECT) Stress Image LV EF (%): 56 Stress EDV (mL):117 TID: 0.86 Stress ESV (mL):52 FUNCTIONAL FINDINGS: There is normal left ventricular systolic function. IMPRESSIONS 1. Attenuation artifact seen in the inferior wall. No evidence of ischemia 2. LV systolic function is normal Anthony Wade MD (Electronically Signed) Final Date: 10 December 2024 16:44 S
[2024-12-10 11:45] VITALS: BP 147/108; PULSE 92
== END 2024-12-10 09:23 | disposition home or self-care (01) ==
LOC: CDL 09:28
PROVIDERS: PCP Family Medicine; Visit Provider Internal Medicine Cardiovascular Disease
DX: R07.9 Chest pain, unspecified (principal); R93.1 Abnormal findings on diagnostic imaging of heart and coronary circulation
CPT/HCPCS: 36415; 78452; 93017; A9500

== ENCOUNTER → 2025-03-07 09:14 | Outpatient (BNVA) | payer MEDICARE, SELFPAY | PROVIDERS: PCP Family Medicine; Visit Provider Family Medicine | DX: I10 Essential (primary) hypertension (principal) | CPT/HCPCS: 80053 ==